=== PATIENT | female | born 1995 | race Hispanic/Latino ===

== ENCOUNTER 2017-06-04 19:25 | Emergency (ER) | payer OTHER ==
[~2017-06-04] VITALS: Ht 149.9 cm; Wt 43.2 kg
[2017-06-04 19:44] VITALS: BP 136/87; PULSE 96; O2SAT 100
--- NOTE | 2017-06-04 22:56 | ED.REPORT ---
HPI-Extremity Problem Upper Date of Service Jun 04, 2017 ED Provider: Feng Bailey DO The pt is a 22 y/o female with no pertinent hx who presents to the ED with a laceration on the left ventral forearm, onset just prior to arrival while she was climbing through a chain link fence. The bleeding is controlled in the ED. She denies self-harm. Her tetanus is up to date. Nursing Notes Stated Complaint: LEFT ARM LACERATION Chief Complaint: Laceration Nursing Notes Reviewed: Yes Allergies: Coded Allergies: codeine (Verified Allergy, Unknown, Rash, 06/01/15) No Active Prescriptions or Reported Meds General Time Seen by MD: 22:55 Chief Complaint Arm injury left Hx Obtained From: Patient Arrived By: Walk-in Onset Occurred: Just prior to arrival Symptom Duration: Since onset Location: : Elbow left Quality: Painful Severity: Current: Mild Severity: Maximum: Mild Recent Healthcare: No recent doctor visit Past Medical History Past Medical History Codeine allergy with urticaria, 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 Physical Exam Initial Vital Signs Vital Signs (First) Date Time Temp Pulse Resp B/P Pulse Ox O2 Delivery O2 Flow Rate FiO2 06/04/17 19:44 37.4 96 136/87 100 Room Air 06/04/17 23:49 14 Initial VS: Reviewed Head / Eyes: Atraumatic, Normocephalic Neck: Supple, Non-tender, Full range of motion Respiratory: No respiratory distress Cardiovascular: Regular rate & rhythm, Intact distal pulses Abdomen / GI: Soft, Non-tender, No guarding, No rebound, No distention Lower Extremities: Vascular intact, Neuro intact, No swelling, No tenderness Skin: Warm, Dry, No cyanosis Neurologic: Alert, Oriented, Nonfocal General/Constitutional: Awake, Alert, No acute distress, Well appearing, Cooperative Upper Extremity / MS: Full range of motion, No swelling, Neurologic intact, Vascular intact 3.5cm laceration to the left forearm. Procedures Laceration Management Laceration Management: 3.5 cm laceration Time: 23:08 Procedure Performed by: ED physician Consent / Setup / Site Prep: Consent from patient, Time-out performed, Hand hygiene observed, Stand sterile technique Location of Wound: Left ventral forearm. Local Anesthesia: Lidocaine 1% Digital Block: No Wound Preparation: Betadine Debridement: None Irrigation: Copious Foreign Body Explore / Removal: Explored for foreign body Repair Skin: Nylon (5-0) # Sutures - Skin: 9 Suture Technique: Simple Post-Procedure / Complications: Antibiotic oint applied, Dressing applied, No complications, Condition improved, Tolerated procedure well, Patient stable Re-Eval/Medical Decision Re-Evaluation/Progress : Time of Eval: 23:18 Re-Evaluation/Progress Note: Rechecked pt. Discussed diagnosis and plan to discharge. Pt understands and agrees with the plan. F/U instruction and RTER warning given. All questions addressed. Counseled Regarding: Diagnosis, Need for follow-up, When/why to return to ED Discharge & Departure Impression: Primary Impression: Laceration Disposition: Home Discharge Condition All VS Reviewed: Yes Condition: Stable Patient Instructions: Laceration (ED) Additional Instructions: Your laceration was sutured today. Keep the wound clean and dry. You may wet and clean the wound but don't soak it. Follow up with your primary care provider or come to the ED after 7-10 days for suture removal. If you develop any new or worsening pain, redness, swelling or discharge from the wound, come back to the emergency department. It was very nice meeting you. Referrals: [facility] Scribe Attestation Portions of this note were transcribed by Autumn Welsh. I,, personally performed the history,physical exam and medical decision-making;I reviewed and confirmed the accuracy of the information in the transcribed note. Signed by Dl Cohen. 06/04/17 Feng Bailey DO Jun 04, 2017 22:56 Autumn Welsh Jun 04, 2017 23:07
[2017-06-04] MEDS ORDERED: Lidocaine 1%-Epi 1:100,000 50 mL Inj SUBQ ONE (23:00)
[2017-06-04 23:49] VITALS: BP 122/80; PULSE 86; RESP 14; O2SAT 100
== END 2017-06-04 23:47 | disposition home or self-care (01) ==
LOC: SED 19:25
DX: S51.812A Laceration without foreign body of left forearm, initial encounter (principal); W26.8XXA Contact with other sharp object(s), not elsewhere classified, initial encounter; Y93.39 Activity, other involving climbing, rappelling and jumping off; Y92.9 Unspecified place or not applicable; Y99.8 Other external cause status; Z88.5 Allergy status to narcotic agent

== ENCOUNTER 2017-06-13 16:51 | Emergency (ER) | payer OTHER | END 2017-06-13 17:00 | disposition home or self-care (01) | LOC: SED 16:51 | DX: Z48.02 Encounter for removal of sutures (principal) ==